=== PATIENT | male | born 1945 | race Caucasian/White ===

== ENCOUNTER → 2024-04-30 | Outpatient (CLI) | payer MEDICARE, BC ==
--- NOTE | 2024-05-08 16:11 | P.PCN ---
Date of Procedure: 04/30/24 Operative Findings: Home sleep study testing Date of service is 04/30/2024 Pertinent history This is a 79-year-old male patient with known history of COPD with an FEV1 of 50% of predicted. The patient is also known to have a disorder, basically diabetes mellitus and hypertension hyperlipidemia. The patient has been complaining of loud snoring, sleep fragmentation, nocturia and chronic hypersomnia sleepiness. Sleep apnea was suspected. Pertinent physical findings The patient's weight is 247 pounds Technical description The [employer] ApneaLink system was used to complete his home sleep study. This is a type III home sleep study evaluation. The total recording duration was 9 hours and 49 minutes. The study started at 9:56 PM and ended at 7:46 AM. There was a total of 9 hours of flow monitoring and 9 hours and 37 minutes of oxygen saturation monitoring Results The respiratory analysis showed a total of 61 obstructive apneas and 129 obstructive hypopneas. The resulting AHI was 32 and the disease was worse in supine body position with an AHI of 47.9 while being supine Oxygenation analysis The patient had a total of 317 oxygen desaturations with a pulse ox dropping more than 4%. The baseline pulse ox was 88% during sleep with the lowest pulse ox of 79% during sleep. The patient spent approximately 5 hours and 48 minutes of sleep time below pulse ox of 89% Cardiac summary Average heart rate was 64 with a minimum heart rate of 47 and the maximum heart of 76 Assessment Severe symptomatic obstructive sleep apnea with an AHI of 32, worse in the supine body position Chronic hypoxic respiratory failure with nocturnal hypoxemia related to obstructive sleep apnea COPD, based on FEV1 is in the order of 50% of predicted based on the PFT from 2020. Diabetes mellitus type 2 Hypertension Hyperlipidemia Deviated nasal septum Chronic loud snoring Chronic hypersomnia sleepiness Nocturia Plan This is a ideal candidate for CPAP therapy. The patient should be able to benefit from CPAP therapy based on the overlap of COPD and obstructive sleep apnea, both being severe. He also has chronic hypoxic respiratory failure and based on that the patient will be asked to come into the sleep center to undergo a CPAP titration.
== END ==
LOC: 3 N SLEEP 10:53
PROVIDERS: ATTEND Internal Medicine Critical Care Medicine

== ENCOUNTER 2024-07-25 19:33 | Outpatient (CLI) | payer MEDICARE, BC ==
--- NOTE | 2024-08-21 05:39 | P.PCN ---
Date of Procedure: 07/25/24 Operative Findings: CPAP titration report Date of service is 07/25/2024 History This is a 79-year-old male patient with severe obstructive sleep apnea with an AHI of 32. Home sleep study was done on 04/30/2024. The patient is coming in to undergo a CPAP titration study. Pertinent physical findings The patient's height is 6 feet 2 inches, weight is 247 pounds with a body mass index of 31.7 Technical description The patient was studied using a standard complex polysomnography protocol that included recording of the Lead II EKG, Central, occipital and frontal EEG, right and left outer canthus EOG, submental EMG, right and left anterior tibialis EMG, respiratory airflow by thermocouple and or pressure/flow transducer, respiratory efforts by abdominal and thoracic PVDF belts, oxygen saturation by cable oximetry. Position by observation synchronized the PSG. Equipment used: StartSampling. Stepwise CPAP titration was done to eliminate all obstructive respiratory events Sleep architecture The total recording duration was 357 minutes. The total sleep time was 236.0 minutes. The wake after sleep onset time was 87.5 minutes. The overall sleep efficiency was 66%. Latency to sleep onset was 35.0 minutes. Related to REM sleep was 82 minutes. The sleep architecture was characterized by 3.6% stage I, 75.4% stage II, 0% stage III and a total of 22.9% REM sleep. The total arousal index was 2.8 Respiratory summary CPAP titration was performed initially starting at a pressure of 6 cm of water and the pressure was gradually increased by increments of 1 cm of water to reach a maximum CPAP pressure of 14 cm of water. This was a quite effective CPAP titration. The patient had adequate elimination of the obstructive respiratory events and the various CPAP pressures. Noted all sleep stages were encountered including REM sleep. The patient was studied in a supine and nonsupine body position. No significant nocturnal oxygen saturations encountered during the CPAP titration. Sleep continuity summary There was a total of 11 arousals with an index of 2.8 with a respiratory arousal index of 0 Periodic movement events There was a total of 180 periodic limb movement activity with an index of 45.8. There was a total of 2 periodic limb movement activity with arousals with an index of 0.5 Cardiac summary Average heart rate was 57 with a minimum heart rate of 54 and a maximum heart rate of 62 Assessment Severe symptomatic obstructive sleep apnea with an AHI of 32, worse in the supine body position, and the patient underwent a successful CPAP titration with complete elimination of the obstructive respiratory events and improvement in the patient's nocturnal oxygen desaturations. Chronic hypoxic respiratory failure with nocturnal hypoxemia related to obstructive sleep apnea COPD, based on FEV1 is in the order of 50% of predicted based on the PFT from 2020. Diabetes mellitus type 2 Hypertension Hyperlipidemia Deviated nasal septum Chronic loud snoring Chronic hypersomnia sleepiness Nocturia Plan Initiate CPAP therapy and the patient is going to be offered an APAP machine pressures of 6/14 cm of water in addition to a large size AirFit F20 fullface mask Encourage weight loss Maintain good sleep hygiene measures Treat comorbidities Will see him back in the office in 30 to 90 days to assess clinical response and compliancy.
== END 2024-07-26 08:00 | disposition home or self-care (01) ==
LOC: 3 N SLEEP 19:33
PROVIDERS: ATTEND Internal Medicine Critical Care Medicine
DX: G47.33 Obstructive sleep apnea (adult) (pediatric) (principal); I10 Essential (primary) hypertension; E78.5 Hyperlipidemia, unspecified; R35.1 Nocturia; J96.11 Chronic respiratory failure with hypoxia; J44.9 Chronic obstructive pulmonary disease, unspecified; J34.2 Deviated nasal septum; G47.10 Hypersomnia, unspecified; E11.9 Type 2 diabetes mellitus without complications
CPT/HCPCS: 95811